=== PATIENT | female | born 1965 | race Hispanic/Latino ===

== ENCOUNTER 2017-06-21 17:38 | Emergency (ER) | payer OTHER ==
[~2017-06-21] VITALS: Ht 154.9 cm; Wt 70.5 kg
[2017-06-21 17:50] VITALS: BP 197/68; PULSE 75; RESP 18; O2SAT 100
--- NOTE | 2017-06-21 18:12 | ED.REPORT ---
HPI-Neurologic Deficit Date of Service Jun 21, 2017 ED Provider: Valdo Kelley DO Pt is a 51 year old female with a history of untreated HTN who presents to the ED for slurred speech onset prior to arrival, but has now resolved upon her arrival. The pt is an employee at a [employer] and she was sent to the ED by her manager inside due to her symptoms, but she states "I don't want to be here." She reports a mild headache and blurry vision. She denies nausea, vomiting, diarrhea , diplopia, extremity pain, and chest pain. Her co-workers deny facial droop and focal weakness. Pt denies a history of TIA and stroke. Per pt, it was overheated in the kitchen. Nursing Notes Stated Complaint: HIGH BLOOD PRESSURE, SLURRED SPEACH Chief Complaint: Neuro Symptoms/ Deficits Nursing Notes Reviewed: Yes General Time Seen by Provider: 18:12 Chief Complaint Slurred speech Hx Obtained From: Patient Arrived By: Walk-in Sudden in Onset?: Yes Onset Occurred: Just prior to arrival Symptom Duration: Duration unknown Location: : Head Quality: Painful Radiation: : Does not radiate Severity: Current: Moderate Severity: Maximum: Moderate Recent Healthcare: No recent doctor visit, No recent hospitalization Similar Sx Previous: No Risk Factors NIH Stroke Scale Level of Consciousness: Alert and responsive (0) Ask Month & Age: Both questions right (0) Open/Close Eyes/Hand Brand Mgr: Performs both tasks (0) Horizontal EO Movements: None (0) Visual Little: No visual loss (0) Facial Palsy: Normal symmetry (0) Right Arm Motor Drift (10s): No drift 10 sec (0) Left Arm Motor Drift (10s): No drift 10 sec (0) Right Leg Motor Drift (5s): No drift 5 sec (0) Left Leg Motor Drift (5s): No drift 5 sec (0) Limb Ataxia FNF/Heel-Davis: No ataxia (0) Sensation (Arms/Legs/Face): No sensory loss (0) Language Aphasia: No aphasia, normal (0) Dysarthria: No dysarthria, normal (0) Extinction/Inattention: No exctinct/inattent (0) NIHSS Score: 0 Time NIHSS Performed: 18:20 Date NIHSS Performed: Jun 21, 2017 Past Medical History Past Medical History Reports: Hypertension, Denies: Stroke, Transient ischemic attack Past Surgical History Denies Social History Other Social History: Good social support Ambulatory Status Independent Review of Systems Eyes: Reports: Blurred bilateral, Denies: Diplopia Cardiovascular: Denies: Chest pain GI: Denies: Diarrhea, Nausea, Vomiting Musculoskeletal: Denies: Extremity pain Neurologic: Reports: Headache, Slurred speech (resolved) Complete sys rev & neg: except as marked. Physical Exam Initial Vital Signs Vital Signs (First) Date Time Temp Pulse Resp B/P Pulse Ox O2 Delivery O2 Flow Rate FiO2 06/21/17 17:50 75 18 197/68 100 Room Air Initial VS: Reviewed Neck: Supple, Full range of motion Abdomen / GI: Soft, Non-tender Extremities: Vascular intact, Neuro intact Skin: Warm, Dry, No cyanosis Psychiatric: Mood/affect normal, Behavior normal General/Constitutional: Awake, Alert Head / Eyes: Atraumatic, Normocephalic Respiratory / Chest: Atraumatic, Breath sounds NL, Breath sounds = bilat Cardiovascular: Heart rate NL, Regular rhythm, Heart sounds NL Neurologic: Oriented X3, Speech NL, No motor deficits, No sensory deficits, CN II - XII intact [id number]-[id number]-[id number] test intact. Strength intact. See NIH stroke scale. Re-Eval/Medical Decision Med Decision/Clinical Course 51-year-old female with a history of high blood pressure presents for evaluation of slurred speech and high blood pressure. Evidently she was at work today. She works at the [employer]. It was very hot where she was working. The officers thought her speech was slurred so they brought her in for evaluation. She presents now with no complaints whatsoever and according officers the slurred speech has resolved. Very thorough neurologic examination was normal. She was moderately to severely hypertensive. Beyond that her exam was normal. This sounded like a transient ischemic attack versus hypertensive urgency. I recommendations were for CAT scan of her brain followed by careful blood pressure control and laboratory work and observation. She declined all of this. She states she did not wish to be here. I explain with the risks of stroke. There were officers present when we did this. She signed an AMA form. She did agree to start her blood pressure medicine backup. She takes atenolol and lisinopril. She was given a dose of lisinopril prescription for 30 day supply of both atenolol and lisinopril. I do recommend that she has narrow imaging studies taking aspirin a day of that neuroimaging is normal. Also given neurology referral. I told her she could come back any time for these tests and even if we are to discharge her home I prefer that CAT scan first. She understood this. She agrees to return if she has any problems and she also agrees to follow-up. She was awake alert oriented 4. She was clinically sober. She is not hypoxic or altered. I did not feel that I could force her against her will to undergo any testing whatsoever. Source of Hx: Old records Re-Evaluation/Progress : Time of Eval: 18:35 Re-Evaluation/Progress Note: Pt rechecked. Pt declines brain CT, labwork, and admission for observation assuming CT was negative. She would like to leave against medical advise. The pt was warned of the risk of stroke. All questions addressed. Counseled Regarding: Diagnosis, Lab results, Need for admission, Other (Pt left AMA) Discharge & Departure Impression: Primary Impression: TIA (transient ischemic attack) Transient cerebral ischemia type: unspecified Qualified Code: G45.9 - Transient cerebral ischemic attack, unspecified Additional Impression: Hypertension Hypertension type: unspecified secondary hypertension Qualified Code: I15.9 - Secondary hypertension, unspecified Disposition: AGAINST MEDICAL ADVICE Discharge Condition All VS Reviewed: Yes Condition: Stable Patient Instructions: Hypertension (ED), Transient Ischemic Attack (ED) Additional Instructions: You are leaving the hospital against medical advice. Check you blood pressure regularly while on these medicines. I recommended a brain CAT scan, lab work, and hospital admission, but that being said, come back any time if you would like to have these tests. Take you blood pressure medication. I recommend that you start taking a baby aspirin ( 81mg) a day, but this is not safe until you have a CT of your brain. Call your primary care provider tomorrow or referral neurologist tomorrow for an urgent follow-up appointment. I think you should be seen the next day. Return to the Emergency Department for any of these tests, or if you experience any new or worrisome symptoms. Referrals: NOPCP (PCP) Keysha Diaz MD Scribe Attestation Portions of this note were transcribed by Ros Medina. I, Dr. Kelley personally performed the history, physical exam and medical decision-making; I reviewed and confirmed the accuracy of the information in the transcribed note. Signed by : Rosa M Byrant, 06/21/17. copies to: Keysha Diaz MD; [facility] Parker DO Jun 21, 2017 18:12 Ros Musa Jun 21, 2017 18:21
[2017-06-21 18:55] VITALS: BP 204/96; PULSE 77; RESP 18; O2SAT 99
== END 2017-06-21 18:58 | disposition left against medical advice (07) ==
LOC: SED 17:38
DX: G45.9 Transient cerebral ischemic attack, unspecified (principal); I15.9 Secondary hypertension, unspecified; Z53.29 Procedure and treatment not carried out because of patient's decision for other reasons